=== PATIENT | male | born 1955 | race African-American/Black ===

== ENCOUNTER 2017-04-23 18:21 | Emergency (ER) | payer OTHER ==
[~2017-04-23] VITALS: Ht 185.4 cm; Wt 131.5 kg
[~2017-04-23 18:21] MED LIST: AMOXICILLIN PO; BIAXIN PO; LIBRIUM PO; LOPRESSOR PO; PRILOSEC PO; PROTONIX PO; THIAMINE HCL100 MG PO; ZANTAC PO
== END 2017-04-23 20:22 | disposition home or self-care (01) ==
LOC: CFTX 18:21 → CED 18:21 → CFTX 19:44
DX: S61.211A Laceration without foreign body of left index finger without damage to nail, initial encounter (principal); E11.9 Type 2 diabetes mellitus without complications; I10 Essential (primary) hypertension; F17.210 Nicotine dependence, cigarettes, uncomplicated; Z23 Encounter for immunization; Z88.2 Allergy status to sulfonamides; W45.8XXA Other foreign body or object entering through skin, initial encounter; Y92.69 Other specified industrial and construction area as the place of occurrence of the external cause; Y99.0 Civilian activity done for income or pay
CPT/HCPCS: 90471; 90715; 99283